=== PATIENT | female | born 2000 | race Caucasian/White ===

== ENCOUNTER 2022-06-12 04:03 | Emergency (ER) | payer BC ==
[~2022-06-12] VITALS: Ht 160 cm; Wt 72.1 kg
[2022-06-12] MEDS ORDERED: SERTRALINE HCL25 MG PO (04:20)
== END 2022-06-12 04:35 | disposition home or self-care (01) ==
LOC: ED 04:03
DX: S60.462A Insect bite (nonvenomous) of right middle finger, initial encounter (principal); W57.XXXA Bitten or stung by nonvenomous insect and other nonvenomous arthropods, initial encounter
CPT/HCPCS: Q0163

== ENCOUNTER 2024-11-24 14:23 | Emergency (ER) | payer BC ==
[~2024-11-24] VITALS: Ht 160 cm; Wt 87.5 kg
[~2024-11-24 14:23] MED LIST: SERTRALINE HCL25 MG PO
[2024-11-24 15:51] VITALS: BP 128/78
== END 2024-11-24 15:52 | disposition home or self-care (01) ==
LOC: ED 14:23
DX: S90.32XA Contusion of left foot, initial encounter (principal); W22.09XA Striking against other stationary object, initial encounter
CPT/HCPCS: 73630; 99283